=== PATIENT | male | born 2000 | race African-American/Black ===

== ENCOUNTER 2019-05-16 23:24 | Emergency (ER) | payer MEDICAID ==
[~2019-05-16] VITALS: Ht 182.9 cm; Wt 84.0 kg
[2019-05-17] MEDS ORDERED: IBUPROFEN 600MG TABLET PO ONE (01:00)
[2019-05-17 02:45] VITALS: BP 125/78
== END 2019-05-17 04:33 | disposition home or self-care (01) ==
LOC: ER 23:24
DX: M25.562 Pain in left knee (principal); M25.561 Pain in right knee; M54.2 Cervicalgia; M25.552 Pain in left hip; M54.5 Low back pain
CPT/HCPCS: 72040; 73521; 73562; 99284